=== PATIENT | female | born 1965 | race Caucasian/White ===

== ENCOUNTER 2019-06-02 22:11 | Emergency (ER) | payer OTHER ==
[~2019-06-02] VITALS: Ht 165.1 cm; Wt 68.0 kg
[2019-06-02] MEDS ORDERED: MELATONIN3 MG PO (22:59)
[2019-06-02] MEDS ORDERED: FOLIC ACID1 MG PO (23:00)
[2019-06-02] MEDS ORDERED: RISPERIDONE 1 MG1 MG PO (23:00)
[2019-06-02] MEDS ORDERED: CARVEDILOL3.125 MG PO (23:00)
[2019-06-02] MEDS ORDERED: SYNTHROID112 MC1 PO (23:00)
[2019-06-02] MEDS ORDERED: TYLENOL325 MG PO ×2 (23:01)
[2019-06-02] MEDS ORDERED: NEURONTIN 300300 M1 PO (23:02)
[2019-06-02] MEDS ORDERED: NUEDEXTA 20-101 EACH PO (23:02)
[2019-06-02] MEDS ORDERED: LOPERAMIDE2 MG PO (23:03)
[2019-06-02] MEDS ORDERED: ATIVAN1 MG PO (23:03)
[2019-06-02] MEDS ORDERED: ZOLOFT25 MG PO (23:03)
[2019-06-02 23:20] LABS: URINE BILIRUBIN NEGATIVE (Negative); URINE BLOOD NEGATIVE (Negative); URINE CLARITY CLEAR; URINE COLOR YELLOW; URINE GLUCOSE-RANDOM* NEGATIVE (Negative); URINE KETONES NEGATIVE (Negative); URINE LEUKOCYTES-REFLEX NEGATIVE (Negative); URINE PROTEIN (DIPSTICK) NEGATIVE (Negative); URINE UROBILINOGEN 0.2 E.U./dl (0.2-1.0)
[2019-06-02 23:21] LABS: URINE NITRITE-REFLEX POSITIVE (Negative)
[2019-06-02 23:25] LABS: ABSOLUTE NEUTROPHILS 5.4 thou/uL (1.4-8.2); BASOPHILS 1.5 % (0.0-2.0); EOSINOPHILS 1.5 % (0.0-3.0); HEMATOCRIT 32.7 % (37.0-47.0); HEMOGLOBIN 10.7 gm/dL (12.0-15.0); LYMPHOCYTES 29.9 % (24.0-44.0); MCH 28.3 pg (26.0-34.0); MCHC 32.8 g/dL (28.0-37.0); MCV 86.2 fL (80.0-100.0); MONOCYTES 8.5 % (1.0-8.0); PLATELET COUNT 351 thou/uL (150-400); POLYS 58.6 % (36.0-66.0); RBC 3.79 mil/uL (4.20-5.00); RDW 15.4 % (10.5-14.5); WBC 9.2 thou/uL (4.0-11.0)
[2019-06-02 23:37] LABS: BACTERIA-REFLEX >30 Many /HPF (None Seen); HYALINE CASTS 0-3 Few /LPF (None Seen); MUCUS 0-3 Light strn/LPF (None Seen); SQUAMOUS 0-3 Few /LPF (0-3)
[2019-06-02 23:38] LABS: CALCIUM OXALATE 0-3 Few /LPF (None Seen); CRYSTALS None Seen /LPF (None Seen); URINE RBC 0-2 Rare /HPF (0-2); URINE WBC-REFLEX 0-5 Rare /HPF (0-5)
[2019-06-02 23:40] LABS: ANION GAP 11 mmol/L (7-16); BUN 20 mg/dL (7-18); CALCIUM 9.6 mg/dL (8.5-10.1); CHLORIDE 104 mmol/L (98-107); CO2 28 mmol/L (21-32); CREATININE 1.1 mg/dL (0.6-1.0); GLUCOSE 107 mg/dL (74-106); POTASSIUM 4.1 mmol/L (3.5-5.1); SODIUM 143 mmol/L (136-145)
[2019-06-02 23:48] LABS: TROPONIN-I <0.06 ng/mL (<0.06)
[2019-06-02] MEDS ORDERED: KEFLEX500 M1 PO (23:50)
[2019-06-03 01:36] VITALS: BP 82/52
--- NOTE | 2019-06-03 10:41 | EKG ---
[place] [address] Responsible [facility] [address] [place] [address] ELECTROCARDIOGRAM REPORT Name: JESUS PEREYRA Room #: [facility] Gutierrez#: [id number] Admission: 06/02/19 Attend Phys: Discharge: 06/03/19 Date of : 61 Report #: [id number] THIS REPORT FOR: //name// [facility] ED Test Date: 2019-06-02 Test Time: 22:22:05 Pat Name: JESUS PEREYRA Department: Room: Gender: F [employer] Scientist: : [id number] Requested By: Raymond Marie Order Number: [id number] MD: Randy Lopez Measurements Intervals [place] Rate: 80 P: 46 UT: 145 QRS: 50 QRSD: 96 T: 43 QT: 380 QTc: 439 Interpretive Statements Sinus rhythm Normal tracing No previous ECG available for comparison Electronically Signed On 06-03-2019 10:41:42 CDT by Randy Lopez [email or web address] <ELECTRONICALLY SIGNED> By: Randy Lopez MD, [facility] 06/03/19 1041 [id number] Randy Lopez MD, FACC /EPI
== END 2019-06-03 01:30 | disposition home or self-care (01) ==
LOC: ER 22:11
PROVIDERS: Emergency Medicine
DX: N39.0 Urinary tract infection, site not specified (principal); I10 Essential (primary) hypertension; F03.90 Unspecified dementia, unspecified severity, without behavioral disturbance, psychotic disturbance, mood disturbance, and anxiety; E03.9 Hypothyroidism, unspecified; I50.33 Acute on chronic diastolic (congestive) heart failure; Z88.2 Allergy status to sulfonamides; Z88.1 Allergy status to other antibiotic agents; Z88.6 Allergy status to analgesic agent; Z91.030 Bee allergy status